=== PATIENT | female | born 1965 | race Caucasian/White ===

== ENCOUNTER 2017-07-05 08:20 | Outpatient (CLI) | payer OTHER ==
[2017-07-05 09:16] LABS: eGFR (African) > 60; eGFR (Non-African) > 60
== END 2017-07-05 08:21 ==
LOC: LAB 08:20
PROVIDERS: ATTEND Family Medicine
DX: E78.2 Mixed hyperlipidemia (principal)
CPT/HCPCS: 36415; 80053; 80061

== ENCOUNTER 2018-07-11 08:10 | Outpatient (CLI) | payer OTHER ==
[2018-07-11 08:56] LABS: eGFR (Non-African) > 60
== END 2018-07-11 08:11 ==
LOC: LAB 08:10
PROVIDERS: ATTEND Family Medicine
DX: Z00.00 Encounter for general adult medical examination without abnormal findings (principal); Z12.11 Encounter for screening for malignant neoplasm of colon
CPT/HCPCS: 36415; 80053; 80061

== ENCOUNTER 2019-07-10 17:53 | Outpatient (CLI) | payer OTHER | END 2019-07-10 17:55 | LOC: LABRHC 17:53 | PROVIDERS: ATTEND Family Medicine | DX: Z12.4 Encounter for screening for malignant neoplasm of cervix (principal) | CPT/HCPCS: 88148; G0143 ==

== ENCOUNTER 2019-07-16 07:45 | Outpatient (CLI) | payer OTHER ==
[2019-07-16 08:27] LABS: HDL 90 mg/dL (>40); eGFR (Non-African) > 60
== END 2019-07-16 07:47 ==
LOC: LAB 07:45
PROVIDERS: ATTEND Family Medicine
DX: Z13.220 Encounter for screening for lipoid disorders (principal)
CPT/HCPCS: 36415; 80053; 80061